=== PATIENT | male | born 1965 | race American Indian/Alaskan Native ===

== ENCOUNTER 2017-07-24 05:55 | Inpatient (IN) | payer OTHER ==
[2017-07-24] MEDS ORDERED: APRESOLINE IV ONE (06:09)
--- NOTE | 2017-07-24 06:15 | Emergency Department Report ---
HPI - General Chief Complaint: Dyspnea/Respdistress Time Seen by Provider: 07/24/17 06:08 - HPI HPI: This is a 51-year-old -[place] male presents to the emergency department by EMS from home with complaint of shortness of breath that started this evening around 3 AM. He attempted to use his albuterol inhaler but he is unsure whether there is actually any medication in the inhaler. He has a past medical history of CHF, diabetes, hypertension. He denies any chest pain, fever , nausea, vomiting. He denies any history of SD, CVA, PE/DVT. He received a breathing treatment in route, 325 mg of aspirin and 2 sublingual nitroglycerin with mild relief. He presents with very elevated blood pressure. He does not currently have a primary care physician. No recent travel or sick contacts at home. ED Past Medical Hx - Past Medical History Previous Medical History?: Yes Hx Hypertension: Yes Hx Congestive Heart Failure: Yes Hx Diabetes: Yes Hx Psychiatric Treatment: Yes - Social History Smoking Status: Current Every Day Smoker Substance Use Type: Alcohol - Medications Home Medications: Home Medications Medication Instructions Recorded Confirmed Last Taken Type Diclofenac Dr [Lauren Newsome] 75 mg PO Q12H PRN #60 tablet 04/14/15 07/24/17 Unknown Rx Pravastatin [Pravachol] 20 mg PO QDAY #30 tablet 04/14/15 07/24/17 Unknown Rx amLODIPine [Norvasc] 10 mg PO QHS #30 tab 01/05/16 07/24/17 Unknown Rx ALBUTEROL Inhaler [ProAir HFA 2 puff IH QID PRN #1 pump 12/09/16 07/24/17 Unknown Rx Inhaler] Famotidine [Pepcid] 20 mg PO BID #60 tablet 12/09/16 07/24/17 Unknown Rx Lisinopril/Hydrochlorothiazide 1 tab PO QAM #30 tab 12/09/16 07/24/17 Unknown Rx [Zestoretic 20-25 mg] Hydralazine HCl [Apresoline TAB] 50 mg PO Q8HR #90 tab 12/10/16 07/24/17 Unknown Rx ED Review of Systems ROS: Stated complaint: RESPIRATORY DISTRESS Other details as noted in HPI Comment: All other systems reviewed and negative Constitutional: denies: chills, fever Eyes: denies: eye pain, eye discharge, vision change ENT: denies: ear pain, throat pain Respiratory: shortness of breath. denies: cough Cardiovascular: denies: chest pain, palpitations Gastrointestinal: denies: abdominal pain, nausea, diarrhea Genitourinary: denies: urgency, dysuria Musculoskeletal: denies: back pain, joint swelling, arthralgia Skin: denies: rash, lesions Neurological: denies: headache, weakness, paresthesias Physical Exam - Physical Exam Vital Signs: Vital Signs 07/24/17 07/24/17 06:00 06:02 Temperature 97.4 F L Pulse Rate 92 H 75 Respiratory 20 22 Rate Blood Pressure 226/131 226/131 O2 Sat by Pulse 96 Oximetry Physical Exam: GENERAL: The patient is well-developed well-nourished. HENT: Normocephalic. Atraumatic. Patient has moist mucous membranes. EYES: Extraocular motions are intact. Pupils equal reactive to light bilaterally. NECK: Supple. Trachea is midline. CHEST/LUNGS: Coarse breath sounds throughout the chest. There is tachypnea but no accessory muscle use. There is no respiratory distress noted. HEART/CARDIOVASCULAR: Regular. There is no tachycardia. There is no murmur. ABDOMEN: Abdomen is soft, nontender. Patient has normal bowel sounds. There is no abdominal distention. Obese habitus. SKIN: There is no rash. There is no edema. There is no diaphoresis. NEURO: The patient is awake, alert, and oriented. The patient is cooperative. The patient has no focal neurologic deficits. The patient has normal speech. MUSCULOSKELETAL: There is no tenderness or deformity. There is no limitation range of motion. There is no evidence of acute injury. ED Course Vital Signs 07/24/17 07/24/17 06:00 06:02 Temperature 97.4 F L Pulse Rate 92 H 75 Respiratory 20 22 Rate Blood Pressure 226/131 226/131 O2 Sat by Pulse 96 Oximetry ED Medical Decision Making - Lab Data Result diagrams: 07/24/17 06:12 07/24/17 06:12 - EKG Data -: EKG Interpreted by Me EKG shows normal: sinus rhythm, axis, intervals, QRS complexes (LVH, there is some early repolarization seen in the anterior leads), ST-T waves Rate: normal - EKG Data When compared to previous EKG there are: no significant change Interpretation: unchanged when compared t (3/31/17) - Radiology Data Radiology results: image reviewed interpreted by me: Chest x-ray shows some mild cardiomegaly and pulmonary vascular congestion. - Medical Decision Making 51-year-old male presents with shortness of breath that started this evening. Medication noncompliance. No follow-up. He has some coarse breath sounds on examination. Pulmonary vascular congestion on chest x-ray. BNP is greater than 3000. He also presented with hypertensive urgency with a systolic greater than 220. He was given some IV hydralazine and IV Lasix. He will be admitted to the hospital for further evaluation and treatment and has been accepted for admission by the hospitalist service. - Differential Diagnosis CHF, PE, Pneumonia, SD, Asthma Critical Care Time: No Critical care attestation.: If time is entered above; I have spent that time in minutes in the direct care of this critically ill patient, excluding procedure time. ED Disposition Clinical Impression: Hypertensive urgency, Congestive heart failure due to high blood pressure Dyspnea Qualifiers: Dyspnea type: shortness of breath Qualified Code(s): R06.02 - Shortness of breath; R06.00 - Dyspnea, unspecified; R06.01 - Orthopnea Disposition: -09 OP ADMIT IP TO THIS HOSP Is pt being admited?: Yes Condition: Stable Referrals: PRIMARY CARE, [Primary Care Provider] - 3-5 Days Time of Disposition: 07:52
[2017-07-24 06:31] LABS: Basophils % (Auto) 0.3 % (0.0-1.8); Eosinophils % (Auto) 1.6 % (0.0-4.3); Mean Corpuscular HGB Conc 33 % (32-34); Mean Corpuscular Hemoglobin 29 pg (28-32); Mean Corpuscular Volume 88 fl (84-94); Platelet Count 182 K/mm3 (140-440); Red Blood Count 5.46 M/mm3 (3.65-5.03); Red Cell Distribution Width 14.9 % (13.2-15.2); White Blood Count 9.2 K/mm3 (4.5-11.0)
[2017-07-24 06:40] LABS: INR 0.89 (0.87-1.13)
[2017-07-24 06:44] LABS: Anion Gap 19 mmol/L; BUN/Creatinine Ratio 14; Blood Urea Nitrogen 17 mg/dL (9-20); Calcium 9.5 mg/dL (8.4-10.2); Carbon Dioxide 23 mmol/L (22-30); Chloride 104.3 mmol/L (98-107); Glucose 132 mg/dL (75-100); Sodium 142 mmol/L (137-145)
[2017-07-24] MEDS ORDERED: DUONEB *Not for PRN Use IH ONE (06:46)
[2017-07-24] MEDS ORDERED: LASIX IV ONE (06:46)
--- NOTE | 2017-07-24 08:29 | History and Physical Report ---
History of Present Illness Date of examination: 07/24/17 Date of admission: 07/24/2017 Chief complaint: Shortness of breath History of present illness: Patient is a 51-year-old -[place] male with past medical history of CHF and hypertension who, presents to the emergency department by EMS from home with complaint of shortness of breath. Until this morning patient was at his normal baseline state of health. Patient developed difficulty of breathing this morning around 3:Am and he has had progressive worsening of shortness of breath. This morning he wake up with difficultly of breathing, shortly after he felt like he could not catch his breath and got worried so called 911 and brought him to the Emergency Department. He is not on oxygen at home. Patient denies he has had no fevers, chills, or night sweats. No hx of recurrent pneumonia. He has no sick contact, TB exposure. He use to have 1-2 pillow, orthopnea and CRUZ but is currently denying PND, abdominal distention, or peripheral edema. Past History Past Medical History: heart failure, hypertension Past Surgical History: No surgical history Social history: smoking Family history: hypertension Medications and Allergies Allergies Allergy/AdvReac Type Severity Reaction Status Date / Time No Known Allergies Allergy Verified 03/08/15 04:53 Home Medications Medication Instructions Recorded Confirmed Last Taken Type ALBUTEROL Inhaler [ProAir HFA 2 puff IH QID PRN #1 pump 07/25/17 Unknown Rx Inhaler] Hydrochlorothiazide [HCTZ] 25 mg PO QDAY #30 tablet 07/25/17 Unknown Rx Lisinopril [Zestril TAB] 40 mg PO QDAY #30 tablet 07/25/17 Unknown Rx Pravastatin [Pravachol] 20 mg PO QDAY #30 tablet 07/25/17 Unknown Rx amLODIPine [Norvasc] 10 mg PO DAILY #30 tab 07/25/17 Unknown Rx Active Meds: Active Medications Acetaminophen (Tylenol) 650 mg PO Q4H PRN PRN Reason: Pain MILD(1-3)/Fever >100.5/ESPARZA Amlodipine Besylate (Norvasc) 10 mg PO QHS CHARLIE Bisacodyl (Dulcolax) 10 mg DE QDAY PRN PRN Reason: Constipation unrelieved by MOM Enoxaparin Sodium (Lovenox) 40 mg SUB-Q QDAY CHARLIE Famotidine (Pepcid) 20 mg PO BID CHARLIE Furosemide (Lasix) 40 mg IV BID@0600,1800 [facility] Miscellaneous Medication (Hydralazine Hcl [Apresoline Tab]) 50 mg PO Q8HR [facility] Miscellaneous Medication (Lisinopril/Hydrochlorothiazide [Zestoretic 20-25 Mg]) 1 tab PO QAM [facility] Pravastatin Sodium (Pravachol) 20 mg PO QDAY [facility] Review of Systems Constitutional: no weight loss, no weight gain, no fever, no chills Ears, nose, mouth and throat: no ear pain, no ear discharge, no nasal congestion Cardiovascular: shortness of breath, dyspnea on exertion, no chest pain, no orthopnea, no palpitations Respiratory: cough, shortness of breath, dyspnea on exertion, no cough with sputum, no excessive sputum Gastrointestinal: no diarrhea, no change in bowel habits Genitourinary Male: no urinary frequency, no nocturia, no erectile dysfunction Rectal: no incontinence, no bleeding Musculoskeletal: no neck stiffness, no neck pain, no shooting arm pain Integumentary: no redness, no sores, no wounds, no jaundice Neurological: no parathesias, no numbness, no tingling, no seizures Psychiatric: no memory loss, no change in sleep habits, no sleep disturbances Endocrine: no heat intolerance, no polyphagia, no excessive thirst, no polydipsia Hematologic/Lymphatic: no easy bruising, no easy bleeding Allergic/Immunologic: no urticaria, no allergic rhinitis Exam - Constitutional Vitals: Temp Pulse Resp BP Pulse Ox 97.4 F L 84 18 182/96 98 07/24/17 06:02 07/24/17 08:27 07/24/17 08:27 07/24/17 07:30 07/24/17 06:24 General appearance: Present: mild distress - EENT Eyes: Present: PERRL ENT: hearing intact - Neck Neck: Present: supple - Respiratory Respiratory: bilateral: rales - Cardiovascular Rhythm: regular Heart Sounds: Present: S1 & S2 - Abdominal General gastrointestinal: Present: soft, non-tender Male genitourinary: Present: deferred - Rectal Rectal Exam: deferred - Integumentary Integumentary: Present: clear, warm, dry - Musculoskeletal Musculoskeletal: strength equal bilaterally - Psychiatric Psychiatric: appropriate mood/affect - Neurologic Neurologic: CNII-XII intact - Allied Health Allied health notes reviewed: nursing Results - Labs CBC & Chem 7: 07/25/17 04:32 07/25/17 04:32 Labs: Laboratory Last Values WBC 9.2 K/mm3 (4.5-11.0) 07/24/17 06:12 RBC 5.46 M/mm3 (3.65-5.03) H 07/24/17 06:12 Hgb 16.0 gm/dl (11.8-15.2) H 07/24/17 06:12 Hct 48.0 % (35.5-45.6) H 07/24/17 06:12 MCV 88 fl (84-94) 07/24/17 06:12 MCH 29 pg (28-32) 07/24/17 06:12 MCHC 33 % (32-34) 07/24/17 06:12 RDW 14.9 % (13.2-15.2) 07/24/17 06:12 Plt Count 182 K/mm3 (140-440) 07/24/17 06:12 Lymph % (Auto) 12.4 % (13.4-35.0) L 07/24/17 06:12 [place] % (Auto) 5.2 % (0.0-7.3) 07/24/17 06:12 Eos % (Auto) 1.6 % (0.0-4.3) 07/24/17 06:12 Baso % (Auto) 0.3 % (0.0-1.8) 07/24/17 06:12 Lymph # 1.1 K/mm3 (1.2-5.4) L 07/24/17 06:12 [place] # 0.5 K/mm3 (0.0-0.8) 07/24/17 06:12 Eos # 0.1 K/mm3 (0.0-0.4) 07/24/17 06:12 Baso # 0.0 K/mm3 (0.0-0.1) 07/24/17 06:12 Seg Neutrophils % 80.5 % (40.0-70.0) H 07/24/17 06:12 Seg Neutrophils # 7.4 K/mm3 (1.8-7.7) 07/24/17 06:12 PT 12.5 Sec. (12.2-14.9) 07/24/17 06:12 INR 0.89 (0.87-1.13) 07/24/17 06:12 APTT 26.0 Sec. (24.2-36.6) 07/24/17 06:12 Sodium 142 mmol/L (137-145) 07/24/17 06:12 Potassium 4.0 mmol/L (3.6-5.0) 07/24/17 06:12 Chloride 104.3 mmol/L (98-107) 07/24/17 06:12 Carbon Dioxide 23 mmol/L (22-30) 07/24/17 06:12 Anion Gap 19 mmol/L 07/24/17 06:12 BUN 17 mg/dL (9-20) 07/24/17 06:12 Creatinine 1.2 mg/dL (0.8-1.5) 07/24/17 06:12 Estimated GFR > 60 ml/min 07/24/17 06:12 BUN/Creatinine Ratio 14 % 07/24/17 06:12 Glucose 132 mg/dL (75-100) H 07/24/17 06:12 Calcium 9.5 mg/dL (8.4-10.2) 07/24/17 06:12 Troponin T 0.019 ng/mL (0.00-0.029) 07/24/17 06:12 NT-Pro-B Natriuret Pep 3804 pg/mL (0-900) H 07/24/17 06:12 - Imaging and Cardiology Chest x-ray: image reviewed ([facility] Cardiomegaly) Assessment and Plan Assessment and plan: Patient is a 51-year-old -[place] male with past medical history of CHF and hypertension who, presents to the emergency department by EMS from home with complaint of shortness of breath. Chest pain secondary to Hypertensive urgency Recent Echocardiogram with ef 50%-55% with Stress test Negative for ischemia on 03/27 EKG sinus rhythm Optimized home antihypertensive medications Strict I&O's and daily weights Low-sodium/cardiac diet/fluid restriction Closely monitor electrolytes Cardiology evaluation GERD Started on IV Protonix Hypertensive urgency Optimized home antihypertensive medications IV hydralazine for SBP >160 Closely monitor blood pressure Tobacco abuse Smoking cessation counseling done. Patient strongly advised to quit. DVT prophylaxis Heparin Advance Directives: Yes VTE prophylaxis?: Chemical Contraindication Mechanical VTE Prophylaxis: Treatment Not Indicated Plan of care discussed with patient/family: Yes
[2017-07-24] MEDS ORDERED: APRESOLINE IV PRN (09:00)
[2017-07-24] MEDS ORDERED: TYLENOL PO PRN (09:00)
--- NOTE | 2017-07-24 09:05 | XRay Report ---
PORTABLE CHEST INDICATION: Shortness of breath. COMPARISON: 12/09/2016 FINDINGS: Portable, frontal chest radiograph suggests slight cardiomegaly. Grossly normal mediastinal and hilar contours. Clear lungs. Right hemidiaphragm again slightly elevated. EKG leads. Intact bones. CONCLUSION: No acute chest process with borderline cardiomegaly. Please correlate. Thank you for the opportunity to participate in this patient's care.
[2017-07-24] MEDS ORDERED: HCTZ PO SCH (10:00)
[2017-07-24] MEDS ORDERED: NON-FORMULARY (Lisinopril/Hydrochlorothiazide [Zestoretic 20-25 Mg] 1 TAB) PO SCH (10:00)
[2017-07-24] MEDS ORDERED: DULCOLAX PR PRN (10:00)
[2017-07-24] MEDS ORDERED: PEPCID PO SCH (10:00)
[2017-07-24] MEDS ORDERED: ZESTRIL PO SCH (10:00)
[2017-07-24] MEDS: COREG PO SCH ×2 (12:45→21:59)
[2017-07-24] MEDS: ZESTRIL PO SCH (12:46)
[2017-07-24] MEDS: PROCARDIA XL PO SCH (12:46)
[2017-07-24] MEDS: LOVENOX SUB-Q SCH (12:47)
[2017-07-24] MEDS ORDERED: NON-FORMULARY (Hydralazine Hcl [Apresoline Tab] 50 MG) PO SCH (14:00)
[2017-07-24] MEDS: APRESOLINE PO SCH ×2 (15:19→22:00)
--- NOTE | 2017-07-24 16:55 | Consultation ---
History of Present Illness Consult date: 07/24/17 Consult reason: congestive heart failure History of present illness: 51yr old male who presented to this hospital with complaints of shortness of breath. Patient denies prior cardiac history. His most recent cardiac workup was done 8 months ago. He had a stress test that reports no ischemia. Normal left ventricular systolic function, ejection fraction 50-55%. He denies chest pain and palpitations. There was no syncope. Patient reports he woke up short of breath associated with diaphoresis. Chest x-ray reports no acute cardiopulmonary process. A 12 lead ECG is a sinus rhythm with repolarization abnormalities. Noted hypertensive on presentation with a blood pressure of 226/131 and admitted for further management. Past History Social history: smoking Family history: hypertension Medications and Allergies Allergies Allergy/AdvReac Type Severity Reaction Status Date / Time No Known Allergies Allergy Verified 03/08/15 04:53 Home Medications Medication Instructions Recorded Confirmed Last Taken Type Diclofenac Dr [Voltaren Dr] 75 mg PO Q12H PRN #60 tablet 04/14/15 07/24/17 Unknown Rx Pravastatin [Pravachol] 20 mg PO QDAY #30 tablet 04/14/15 07/24/17 Unknown Rx amLODIPine [Norvasc] 10 mg PO QHS #30 tab 01/05/16 07/24/17 Unknown Rx ALBUTEROL Inhaler [ProAir HFA 2 puff IH QID PRN #1 pump 12/09/16 07/24/17 Unknown Rx Inhaler] Famotidine [Pepcid] 20 mg PO BID #60 tablet 12/09/16 07/24/17 Unknown Rx Lisinopril/Hydrochlorothiazide 1 tab PO QAM #30 tab 12/09/16 07/24/17 Unknown Rx [Zestoretic 20-25 mg] Hydralazine HCl [Apresoline TAB] 50 mg PO Q8HR #90 tab 12/10/16 07/24/17 Unknown Rx Active Meds: Active Medications Acetaminophen (Tylenol) 650 mg PO Q4H PRN PRN Reason: Pain MILD(1-3)/Fever >100.5/ESPARZA Bisacodyl (Dulcolax) 10 mg AL QDAY PRN PRN Reason: Constipation Carvedilol (Coreg) 6.25 mg PO BID CHARLIE Last Admin: 07/24/17 12:45 Dose: 6.25 mg Enoxaparin Sodium (Lovenox) 40 mg SUB-Q QDAY [facility] Last Admin: 07/24/17 12:47 Dose: 40 mg Furosemide (Lasix) 40 mg IV BID@0600,1800 [facility] Hydralazine HCl (Apresoline) 50 mg PO Q8HR [facility] Last Admin: 07/24/17 15:19 Dose: 50 mg Hydralazine HCl (Apresoline) 10 mg IV Q4H PRN PRN Reason: Blood Pressure Lisinopril (Zestril) 40 mg PO DAILY [facility] Last Admin: 07/24/17 12:46 Dose: 40 mg Nifedipine (Procardia Xl) 60 mg PO DAILY [facility] Last Admin: 07/24/17 12:46 Dose: 60 mg Pantoprazole Sodium (Protonix) 40 mg PO DAILY [facility] Pravastatin Sodium (Pravachol) 20 mg PO QHS [facility] Physical Examination Vital Signs Pulse Resp BP 92 H 20 226/131 07/24/17 06:00 07/24/17 06:00 07/24/17 06:00 General appearance: no acute distress HEENT: Positive: PERRL Neck: Positive: trachea midline Cardiac: Positive: Reg Rate and Rhythm Lungs: Positive: Decreased Breath Sounds Neuro: Positive: Grossly Intact Extremities: Absent: edema Results 07/24/17 06:12 07/24/17 06:12 Assessment and Plan - Patient Problems (1) Hypertensive urgency Current Visit: Yes Status: Acute
[2017-07-24] MEDS: LASIX IV SCH (19:30)
[2017-07-24] MEDS ORDERED: NORVASC PO SCH (22:00)
[2017-07-24] MEDS ORDERED: PRAVACHOL PO SCH (22:00)
[2017-07-25 05:00] LABS: Basophils % (Auto) 0.8 % (0.0-1.8); Eosinophils % (Auto) 1.5 % (0.0-4.3); Hemoglobin 17.8 gm/dl (11.8-15.2); Mean Corpuscular HGB Conc 33 % (32-34); Mean Corpuscular Hemoglobin 28 pg (28-32); Mean Corpuscular Volume 87 fl (84-94); Platelet Count 229 K/mm3 (140-440); Red Blood Count 6.27 M/mm3 (3.65-5.03); Red Cell Distribution Width 15.3 % (13.2-15.2); White Blood Count 7.5 K/mm3 (4.5-11.0)
[2017-07-25 05:21] LABS: Anion Gap 19 mmol/L; BUN/Creatinine Ratio 17; Blood Urea Nitrogen 19 mg/dL (9-20); Calcium 10.1 mg/dL (8.4-10.2); Carbon Dioxide 24 mmol/L (22-30); Chloride 97.6 mmol/L (98-107); Glucose 120 mg/dL (75-100); Hematocrit 53.7 % (35.5-45.6); Potassium 3.7 mmol/L (3.6-5.0); Sodium 137 mmol/L (137-145)
[2017-07-25] MEDS: LASIX IV SCH (06:45)
[2017-07-25] MEDS: APRESOLINE PO SCH (06:46)
[2017-07-25 08:15] VITALS: BP 132/77
[2017-07-25] MEDS ORDERED: PROTONIX PO SCH (10:00)
[2017-07-25] MEDS ORDERED: PROTONIX IV SCH (10:00)
--- NOTE | 2017-07-25 10:11 | Discharge Summary ---
Providers - Providers Date of Admission: 07/24/17 08:24 Attending physician: MU HEBERT MD 07/24/17 08:51 Consult to Physician [CONS] Routine Consulting Provider: SAM MADERA Reason For Exam: CHF Place consult to:: yes Notified:: Charli Fine Phone number called:: [phone] Was contact made?: Yes If yes, spoke with:: Charli Time called:: 16:45 Primary care physician: [employer] Hospitalization Condition: Stable Hospital course: 51-year-old male with past medical hypertension, who was been off medications due to lack of insurance. Patient presented with chest pain. Found to have hypertensive urgency, ACS was ruled out, EKG troponin were negative. Blood pressure medications were optimized, patient was given resources to help him to better afford his blood pressure medications. Discharge diagnoses Hypertensive urgency GERD Tobacco abuse Disposition: DC- TO HOME OR SELFCARE Time spent for discharge: 33 minutes Core Measure Documentation - Palliative Care Palliative Care/ Comfort Measures: Not Applicable - Core Measures Any of the following diagnoses?: none Exam - Constitutional Vitals: Temp Pulse Resp BP Pulse Ox 97.9 F 73 19 132/77 95 07/25/17 08:14 07/25/17 08:14 07/25/17 08:14 07/25/17 08:14 07/25/17 08:14 General appearance: Present: no acute distress, well-nourished - EENT Eyes: Present: PERRL ENT: hearing intact, clear oral mucosa - Neck Neck: Present: supple, normal ROM - Respiratory Respiratory effort: normal Respiratory: bilateral: CTA - Cardiovascular Heart Sounds: Present: S1 & S2. Absent: rub, click - Extremities Extremities: pulses symmetrical, No edema Peripheral Pulses: within normal limits - Abdominal General gastrointestinal: Present: soft, non-tender, non-distended, normal bowel sounds Male genitourinary: Present: normal - Integumentary Integumentary: Present: clear, warm, dry - Musculoskeletal Musculoskeletal: gait normal, strength equal bilaterally - Psychiatric Psychiatric: appropriate mood/affect, intact judgment & insight - Neurologic Neurologic: CNII-XII intact, moves all extremities Plan Follow up with: [facility] [Provider Group] - 7 Days JEANE SUNG MD [Staff Physician] - 7 Days PRIMARY CAREMD [Primary Care Provider] - 3-5 Days Prescriptions: ALBUTEROL Inhaler [ProAir HFA Inhaler] 2 puff IH QID PRN #1 pump PRN Reason: Shortness Of Breath amLODIPine [Norvasc] 10 mg PO DAILY #30 tab Hydrochlorothiazide [HCTZ] 25 mg PO QDAY #30 tablet Lisinopril [Zestril TAB] 40 mg PO QDAY #30 tablet Pravastatin [Pravachol] 20 mg PO QDAY #30 tablet
[2017-07-25] MEDS: COREG PO SCH (11:19)
[2017-07-25] MEDS: ZESTRIL PO SCH (11:19)
[2017-07-25] MEDS: LOVENOX SUB-Q SCH (11:19)
[2017-07-25] MEDS: PROCARDIA XL PO SCH (11:20)
--- NOTE | 2017-07-25 12:59 | Progress Note ---
Assessment and Plan Hypoxemia Hypertensive urgency Negative MPI 11/2016 EF 50-55% on echo 11/2016 Conservative cardiac management. Subjective Date of service: 07/25/17 Interval history: Patient has no complaints. Objective Vital Signs Temp Pulse Pulse Resp BP BP Pulse Ox 07/25/17 11:19 73 132/77 07/25/17 08:14 97.9 F 73 19 132/77 95 07/25/17 06:46 89 140/69 07/25/17 06:13 18 07/25/17 05:18 75 91 07/25/17 05:17 97.6 F 76 140/69 94 07/25/17 03:06 18 07/25/17 01:35 72 95 07/25/17 01:34 98.9 F 74 128/76 93 07/24/17 22:00 78 86 18 140/83 97 07/24/17 21:59 78 140/83 07/24/17 21:55 99.2 F 07/24/17 20:36 80 155/81 94 07/24/17 20:35 76 150 H 155/81 95 07/24/17 16:22 98.3 F 74 18 149/87 97 07/24/17 15:19 88 172/89 - Physical Examination General: No Apparent Distress HEENT: Positive: PERRL Neck: Positive: trachea midline Cardiac: Positive: Reg Rate and Rhythm Neuro: Positive: Grossly Intact Extremities: Absent: edema - Labs and Meds CBC 07/25/17 Range/Units 04:32 WBC 7.5 (4.5-11.0) K/mm3 RBC 6.27 H (3.65-5.03) M/mm3 Hgb 17.8 H (11.8-15.2) gm/dl Hct 53.7 H (35.5-45.6) % Plt Count 229 (140-440) K/mm3 Lymph # 1.4 (1.2-5.4) K/mm3 [place] # 0.8 (0.0-0.8) K/mm3 Eos # 0.1 (0.0-0.4) K/mm3 Baso # 0.1 (0.0-0.1) K/mm3 Comprehensive Metabolic Panel 07/25/17 Range/Units 04:32 Sodium 137 (137-145) mmol/L Potassium 3.7 (3.6-5.0) mmol/L Chloride 97.6 L (98-107) mmol/L Carbon Dioxide 24 (22-30) mmol/L BUN 19 (9-20) mg/dL Creatinine 1.1 (0.8-1.5) mg/dL Glucose 120 H (75-100) mg/dL Calcium 10.1 (8.4-10.2) mg/dL
--- NOTE | 2017-07-28 10:56 | History and Physical Report ---
History of Present Illness Date of admission: 07/24/17 08:24 Chief complaint: chest pain. History of present illness: 51m with pmh of htn, who has not been on meds due to lack of insurance. He pw chest pain associated with sob, denies orthopnea, PND or lower extremity edema. He describes the pain as constant, gallstone sternal. No radiation Past History Past Medical History: hypertension Past Surgical History: No surgical history Social history: smoking Family history: hypertension Medications and Allergies Allergies Allergy/AdvReac Type Severity Reaction Status Date / Time No Known Allergies Allergy Verified 03/08/15 04:53 Home Medications Medication Instructions Recorded Confirmed Last Taken Type ALBUTEROL Inhaler [ProAir HFA 2 puff IH QID PRN #1 pump 07/25/17 Unknown Rx Inhaler] Hydrochlorothiazide [HCTZ] 25 mg PO QDAY #30 tablet 07/25/17 Unknown Rx Lisinopril [Zestril TAB] 40 mg PO QDAY #30 tablet 07/25/17 Unknown Rx Pravastatin [Pravachol] 20 mg PO QDAY #30 tablet 07/25/17 Unknown Rx amLODIPine [Norvasc] 10 mg PO DAILY #30 tab 07/25/17 Unknown Rx Review of Systems All systems: negative Cardiovascular: chest pain, shortness of breath, no dyspnea on exertion, no paroxysmal nocturnal dyspnea Exam - Constitutional Vitals: Temp Pulse Resp BP Pulse Ox 97.9 F 73 19 132/77 95 07/25/17 08:14 07/25/17 11:19 07/25/17 08:14 07/25/17 11:19 07/25/17 08:14 General appearance: Present: no acute distress, well-nourished - EENT Eyes: Present: PERRL ENT: hearing intact, clear oral mucosa - Neck Neck: Present: supple, normal ROM - Respiratory Respiratory effort: normal Respiratory: bilateral: CTA - Cardiovascular Heart Sounds: Present: S1 & S2. Absent: rub, click - Extremities Extremities: pulses symmetrical, No edema Peripheral Pulses: within normal limits - Abdominal General gastrointestinal: Present: soft, non-tender, non-distended, normal bowel sounds Male genitourinary: Present: normal - Integumentary Integumentary: Present: clear, warm, dry - Musculoskeletal Musculoskeletal: gait normal, strength equal bilaterally - Psychiatric Psychiatric: appropriate mood/affect, intact judgment & insight - Neurologic Neurologic: CNII-XII intact, moves all extremities Results - Labs CBC & Chem 7: 07/25/17 04:32 07/25/17 04:32 Labs: Laboratory Last Values WBC 7.5 K/mm3 (4.5-11.0) 07/25/17 04:32 RBC 6.27 M/mm3 (3.65-5.03) H 07/25/17 04:32 Hgb 17.8 gm/dl (11.8-15.2) H 07/25/17 04:32 Hct 53.7 % (35.5-45.6) H 07/25/17 04:32 MCV 87 fl (84-94) 07/25/17 04:32 MCH 28 pg (28-32) 07/25/17 04:32 MCHC 33 % (32-34) 07/25/17 04:32 RDW 15.3 % (13.2-15.2) H 07/25/17 04:32 Plt Count 229 K/mm3 (140-440) 07/25/17 04:32 Lymph % (Auto) 18.4 % (13.4-35.0) 07/25/17 04:32 Sabine % (Auto) 10.5 % (0.0-7.3) H 07/25/17 04:32 Eos % (Auto) 1.5 % (0.0-4.3) 07/25/17 04:32 Baso % (Auto) 0.8 % (0.0-1.8) 07/25/17 04:32 Lymph # 1.4 K/mm3 (1.2-5.4) 07/25/17 04:32 Sabine # 0.8 K/mm3 (0.0-0.8) 07/25/17 04:32 Eos # 0.1 K/mm3 (0.0-0.4) 07/25/17 04:32 Baso # 0.1 K/mm3 (0.0-0.1) 07/25/17 04:32 Seg Neutrophils % 68.8 % (40.0-70.0) 07/25/17 04:32 Seg Neutrophils # 5.1 K/mm3 (1.8-7.7) 07/25/17 04:32 PT 12.5 Sec. (12.2-14.9) 07/24/17 06:12 INR 0.89 (0.87-1.13) 07/24/17 06:12 APTT 26.0 Sec. (24.2-36.6) 07/24/17 06:12 Sodium 137 mmol/L (137-145) 07/25/17 04:32 Potassium 3.7 mmol/L (3.6-5.0) 07/25/17 04:32 Chloride 97.6 mmol/L (98-107) L 07/25/17 04:32 Carbon Dioxide 24 mmol/L (22-30) 07/25/17 04:32 Anion Gap 19 mmol/L 07/25/17 04:32 BUN 19 mg/dL (9-20) 07/25/17 04:32 Creatinine 1.1 mg/dL (0.8-1.5) 07/25/17 04:32 Estimated GFR > 60 ml/min 07/25/17 04:32 BUN/Creatinine Ratio 17 % 07/25/17 04:32 Glucose 120 mg/dL (75-100) H 07/25/17 04:32 Calcium 10.1 mg/dL (8.4-10.2) 07/25/17 04:32 Magnesium 2.00 mg/dL (1.7-2.3) 07/25/17 04:35 Troponin T 0.019 ng/mL (0.00-0.029) 07/24/17 06:12 NT-Pro-B Natriuret Pep 3804 pg/mL (0-900) H 07/24/17 06:12 - Imaging and Cardiology EKG: image reviewed (no acute findings) Chest x-ray: image reviewed Assessment and Plan Assessment and plan: Patient is a 51-year-old -[place] male with past medical history of hypertension, who has been off meds due to lack of insurance who pw chest pain, and elevated BP. HTN URGENCY Optimize blood pressure medications, will give patient resources so that he is better able to afford his blood pressure medications and have also given him medications that are free on the [employer] medication list CHEST PAIN Was likely due to hypertensive urgency, troponin negative, chest x-ray and EKG also negative. Cardiology input appreciated GERD PPI Tobacco abuse Patient was counseled about cessation, nicotine patch offered. Plan of care discussed with patient/family: Yes
== END 2017-07-25 12:36 | disposition home or self-care (01) | DRG 305 ==
LOC: ED 05:55 → 4A 08:24
PROVIDERS: ADMIT Internal Medicine; ATTEND Internal Medicine
DX: I16.0 Hypertensive urgency (principal); J44.1 Chronic obstructive pulmonary disease with (acute) exacerbation; E11.9 Type 2 diabetes mellitus without complications; F17.200 Nicotine dependence, unspecified, uncomplicated; K21.9 Gastro-esophageal reflux disease without esophagitis; R09.02 Hypoxemia; I11.0 Hypertensive heart disease with heart failure; I50.9 Heart failure, unspecified; Z82.49 Family history of ischemic heart disease and other diseases of the circulatory system; Z71.6 Tobacco abuse counseling
CPT/HCPCS: 36415; 71010; 80048; 83735; 83880; 84484; 85025; 85610; 85730; 93005; 93010; 94640; 96374; 96375; 99285; 99406; J0360; J1650; J1940

== ENCOUNTER 2018-12-18 06:36 | Day surgery (SDC) | payer MEDICAID ==
[2018-12-18] MEDS ORDERED: ECOTRIN PO ONE (06:56)
[2018-12-18 07:19] LABS: Basophils % (Auto) 0.8 % (0.0-1.8); Eosinophils # (Auto) 0.3 K/mm3 (0.0-0.4); Eosinophils % (Auto) 5.1 % (0.0-4.3); Hematocrit 43.8 % (35.5-45.6); Hemoglobin 15.3 gm/dl (11.8-15.2); Lymphocytes # (Auto) 2.1 K/mm3 (1.2-5.4); Lymphocytes % (Auto) 38.2 % (13.4-35.0); Mean Corpuscular HGB Conc 35 % (32-34); Mean Corpuscular Volume 87 fl (84-94); Monocytes # (Auto) 0.6 K/mm3 (0.0-0.8); Monocytes % (Auto) 10.2 % (0.0-7.3); Platelet Count 227 K/mm3 (140-440); Red Blood Count 5.06 M/mm3 (3.65-5.03); Red Cell Distribution Width 13.9 % (13.2-15.2)
[2018-12-18 07:29] LABS: INR 0.92 (0.87-1.13)
[2018-12-18 07:30] LABS: Partial Thromboplastin Time 25.4 Sec. (24.2-36.6)
[2018-12-18] MEDS: NACL 0.9% 500 ML 500 ML IV SCH ×3 (07:30→10:35)
[2018-12-18 07:41] LABS: BUN/Creatinine Ratio 18; Blood Urea Nitrogen 23 mg/dL (9-20); Calcium 9.7 mg/dL (8.4-10.2); Hemolysis Index 8
[2018-12-18] MEDS ORDERED: HEPARIN/NS 5000 UNIT/500ML(CATH LAB) 1,000 ML IR ONE (08:56)
[2018-12-18] MEDS: VERSED ONE ×3 (09:37→09:50)
[2018-12-18] MEDS: SUBLIMAZE ONE ×3 (09:37→09:50)
[2018-12-18] MEDS: CALAN ONE ×2 (09:38→09:48)
[2018-12-18] MEDS: XYLOCAINE 2% INFILTRATI ONE ×2 (09:38→09:46)
[2018-12-18] MEDS: HEPARIN 10,000 UNITS/10 ML ONE ×2 (09:39→09:48)
[2018-12-18] MEDS: NITROGLYCERIN SYRINGE 3 ML ONE ×2 (09:40→09:48)
--- NOTE | 2018-12-18 10:33 | Discharge Summary ---
Short Stay Discharge Plan Activity: advance as tolerated Weight Bearing Status: Full Weight Bearing Diet: low fat, low cholesterol, low salt Wound: keep clean and dry Special Instructions: smoking cessation, no heavy lifting (3 days) Additional Instructions: STOP SMOKING ADVISED. Follow up with: LOLI CUEVAS MD [Primary Care Provider] - 7 Days WIL DAVIS MD [Staff Physician] - 7 Days
[2018-12-18] MEDS ORDERED: NACL 0.9% 1000 ML 1,000 ML IV SCH (11:00)
--- NOTE | 2018-12-18 11:14 | Cardiac Catherization Report ---
CARDIAC CATHETERIZATION REPORT REASON FOR PROCEDURE: The patient is a 53-year-old man that had an outpatient evaluation for chest pain reported with an abnormal stress thallium, referred for cardiac catheterization. PROCEDURE: 1. Left heart catheterization. 2. Selective left and right coronary angiography. 3. Left ventricle angiography. 4. Sedation time: Start 9:45, end 10:00. DESCRIPTION OF PROCEDURE: The patient was prepped and draped in a sterile fashion after informed consent. The right radial cath site was prepped and draped after a negative Terrence's test. The right radial artery was entered using Seldinger technique followed by placement of a 6-Ukrainian hydrophilic sheath. Routine radial cocktail was administered via the sheath. Selective left and right coronary angiography was performed using #4 right and left Benjamín catheters. The right Benjamín catheter was used for left ventricle angiography. The catheters were removed, sheath removed and hemostasis achieved using a TR band. The patient was returned to the post-procedure unit in stable condition. There were no complications. FINDINGS: HEMODYNAMICS: The left ventricle end diastolic pressure was 18, following coronary angiography. Ascending aortic pressure was 112/69. There was no significant pressure gradient on pullback across the aortic valve. CORONARY ANGIOGRAPHY: The left main coronary artery was angiographically normal. The left anterior descending artery and its diagonal branches were angiographically normal. The circumflex artery was a large system, codominant with the right coronary artery. This vessel had mild luminal irregularities in its mid to distal AV groove segment. The right coronary artery was small caliber vessel, codominant with the circumflex. There was mild ostial narrowing of the right coronary artery. Left ventricular systolic function was within normal limits, ejection fraction 55%. CONCLUSION: 1. Mild irregularities as above, no significant obstructive coronary lesions. 2. Well preserved left ventricular systolic function, ejection fraction 50-55%. RECOMMENDATION: Risk factor modification and medical therapy. JOB# [id number] CA/NTS
[2018-12-18 12:52] VITALS: BP 114/70
== END 2018-12-18 13:30 | disposition home or self-care (01) ==
LOC: CATHLABREC 06:36
PROVIDERS: ATTEND Internal Medicine Cardiovascular Disease
DX: R07.9 Chest pain, unspecified (principal); I11.0 Hypertensive heart disease with heart failure; I50.9 Heart failure, unspecified; J44.9 Chronic obstructive pulmonary disease, unspecified; K21.9 Gastro-esophageal reflux disease without esophagitis; E78.00 Pure hypercholesterolemia, unspecified; F17.210 Nicotine dependence, cigarettes, uncomplicated; Z79.899 Other long term (current) drug therapy; Z79.82 Long term (current) use of aspirin; Z98.890 Other specified postprocedural states
CPT/HCPCS: 36415; 80048; 85025; 85610; 85730; 93005; 93010; 93458; 99156; C1894; J1644; J2250; J3010; J7040; Q9967

== ENCOUNTER 2018-12-23 18:46 | Emergency (ER) | payer MEDICAID ==
[2018-12-23 20:03] VITALS: BP 128/73
--- NOTE | 2018-12-23 20:04 | Emergency Department Report ---
Chief Complaint: Extremity Injury, Upper Stated Complaint: LFT ARM PAIN Time Seen by Provider: 12/23/18 20:00 - HPI History of Present Illness: pt presents with left arm numbness that began at 11 PM last night never had before no ESPARZA, vision changes, no new gait disturbance, no weakness no CP, no SOB PMHx had heart cath on december 18 and states he had stents placed PMHx HTN, HLD MSE screening note: Focused history and physical exam performed. Due to findings the following was ordered: Ct head, EKG, labs ED Disposition for MSE Condition: Stable
--- NOTE | 2018-12-23 21:46 | Emergency Department Report ---
HPI - General Chief Complaint: Extremity Injury, Upper Time Seen by Provider: 12/23/18 20:00 - HPI HPI: 53-year-old -[place] male presents to the emergency department with a complaint of left arm numbness since last night. He woke up this morning and still had the numbness and became concerned. Since then it has improved but he still has the sensation in his left hand. He says it is a pins and needles sensation with some decreased sensation. He denies any headache, vision change, slurred speech or any other neurological deficits. He did not take anything for his symptoms prior to presentation. He has a past medical history of CHF, COPD, hypertension. He had a negative cardiac catheterization about 5 days ago. His primary care physician is Dr. Brown Felix and his cardiology group is [facility]. He is a tobacco smoker but denies any illicit drug use. ED Past Medical Hx - Past Medical History Hx Hypertension: Yes Hx Heart Attack/AMI: No Hx Congestive Heart Failure: Yes Hx Diabetes: No Hx Arthritis: No Hx Psychiatric Treatment: Yes Hx COPD: Yes Hx HIV: No - Social History Smoking Status: Current Every Day Smoker Substance Use Type: Alcohol - Medications Home Medications: Home Medications Medication Instructions Recorded Confirmed Last Taken Type ALBUTEROL Inhaler (OR & NICU) 2 puff IH QID PRN #1 pump 07/25/17 12/18/18 12/10/18 Rx [ProAir HFA Inhaler] 2 puff Lisinopril [Zestril TAB] 40 mg PO QDAY #30 tablet 07/25/17 12/18/18 12/17/18 Rx 40mg Pravastatin [Pravachol] 20 mg PO QDAY #30 tablet 07/25/17 12/18/18 12/17/18 Rx 20mg amLODIPine [Norvasc] 10 mg PO DAILY #30 tab 07/25/17 12/18/18 12/17/18 Rx 10mg hydroCHLOROthiazide [HCTZ] 25 mg PO QDAY #30 tablet 07/25/17 12/18/18 12/17/18 Rx 25mg Aspirin [Adult Low Dose Aspirin EC] 81 mg PO DAILY 12/18/18 12/18/18 12/17/18 History 81mg ISOSORBIDE MONOnitrate [Imdur ER] 30 mg PO DAILY 12/18/18 12/18/18 12/17/18 History 30mg ED Review of Systems ROS: Stated complaint: LFT ARM PAIN Other details as noted in HPI Comment: All other systems reviewed and negative Constitutional: denies: chills, fever Eyes: denies: eye pain, vision change ENT: denies: ear pain, throat pain Respiratory: denies: cough, shortness of breath Cardiovascular: denies: chest pain, palpitations Gastrointestinal: denies: abdominal pain, vomiting Genitourinary: denies: dysuria, discharge Musculoskeletal: denies: back pain, arthralgia Skin: denies: rash, lesions Neurological: numbness, paresthesias Physical Exam - Physical Exam Vital Signs: Vital Signs 12/23/18 20:01 Temperature 98.3 F Pulse Rate 61 Respiratory 17 Rate Blood Pressure 128/73 [Left] O2 Sat by Pulse 100 Oximetry Physical Exam: GENERAL: The patient is well-developed well-nourished. HEENT: Normocephalic. Atraumatic. Patient has moist mucous membranes. EYES: Extraocular motions are intact. Pupils are equal and reactive to light bilaterally. NECK: Supple. Trachea is midline. CHEST/LUNGS: Clear to auscultation. There is no respiratory distress noted. HEART/CARDIOVASCULAR: Regular. There is no tachycardia. There is no obvious murmur. ABDOMEN: Abdomen is soft, nontender. Patient has normal bowel sounds. There is no abdominal distention. SKIN: Skin is warm and dry. NEURO: The patient is awake, alert, and oriented. The patient is cooperative. Patient has subjective decreased sensation to the left hand. The patient has normal speech. Cranial nerves II through XII grossly intact. No pronator drift. No dysmetria. No facial asymmetry. MUSCULOSKELETAL: There is no tenderness or deformity. There is no limitation range of motion. There is no evidence of acute injury. Muscle strength 5 out 5 in upper and lower extremities bilaterally. Capillary refill less than 2 seconds and radial pulses +2 over 4 to the affected left upper extremity. ED Course Vital Signs 12/23/18 20:01 Temperature 98.3 F Pulse Rate 61 Respiratory 17 Rate Blood Pressure 128/73 [Left] O2 Sat by Pulse 100 Oximetry ED Medical Decision Making - Lab Data Result diagrams: 12/23/18 20:18 - EKG Data -: EKG Interpreted by Me EKG shows normal: sinus rhythm, axis, intervals, QRS complexes (nonspecific intraventricular conduction delay), ST-T waves Rate: bradycardia (48 bpm) - EKG Data When compared to previous EKG there are: no significant change Interpretation: unchanged when compared t (12/18/18) - Medical Decision Making This patient presents to the emergency department with complaint of some right arm numbness and no paresthesias. No other complaints at this time. On examination he has full muscle strength and is neurovascularly intact. No focal deficits. Cranial nerves intact. No pronator drift or dysmetria. Labs were being obtained to make sure that there are no electrolyte abnormalities, significant anemia or elevated troponin. The plan was going to be to get a CT scan of the head without contrast. However, just after my evaluation with the patient, he eloped from the emergency department. - Differential Diagnosis paresthesias, CVA, TIA, electrolyte abnormalities, significant anemia Critical Care Time: No Critical care attestation.: If time is entered above; I have spent that time in minutes in the direct care of this critically ill patient, excluding procedure time. ED Disposition Clinical Impression: Left arm numbness, Arm paresthesia, left Disposition: Z-07 ELOPED Is pt being admited?: No Condition: Stable Referrals: RENNY RAYA MD [Primary Care Provider] - 3-5 Days Time of Disposition: 22:22
[2018-12-23 21:53] LABS: Hematocrit 46.6 % (35.5-45.6); Hemoglobin 15.9 gm/dl (11.8-15.2); Red Blood Count 5.32 M/mm3 (3.65-5.03)
[2018-12-23 21:54] LABS: Mean Corpuscular Volume 88 fl (84-94)
[2018-12-23 21:57] LABS: Mean Corpuscular HGB Conc 34 % (32-34); Platelet Count 224 K/mm3 (140-440); Red Cell Distribution Width 14.3 % (13.2-15.2)
[2018-12-23 21:58] LABS: Basophils % (Auto) 0.6 % (0.0-1.8); Eosinophils # (Auto) 0.2 K/mm3 (0.0-0.4); Eosinophils % (Auto) 3.6 % (0.0-4.3); Lymphocytes # (Auto) 1.4 K/mm3 (1.2-5.4); Lymphocytes % (Auto) 22.9 % (13.4-35.0); Monocytes # (Auto) 0.6 K/mm3 (0.0-0.8); Monocytes % (Auto) 9.9 % (0.0-7.3)
[2018-12-23 23:04] LABS: Calcium 10.3 mg/dL (8.4-10.2)
[2018-12-23 23:05] LABS: Albumin 4.3 g/dL (3.9-5)
== END 2018-12-23 22:20 | disposition left against medical advice (07) ==
LOC: ED 18:46
DX: R20.0 Anesthesia of skin (principal); I11.0 Hypertensive heart disease with heart failure; I50.9 Heart failure, unspecified; J44.9 Chronic obstructive pulmonary disease, unspecified; F17.200 Nicotine dependence, unspecified, uncomplicated
CPT/HCPCS: 36415; 80053; 83735; 84100; 84484; 85025; 93005; 93010

== ENCOUNTER 2019-04-12 11:14 | Emergency (ER) | payer MEDICAID ==
[2019-04-12] MEDS ORDERED: XYLOCAINE 2% INFILTRATI ONE (11:40)
[2019-04-12] MEDS ORDERED: XYLOCAINE TOPICAL 4% TP ONE (11:40)
[2019-04-12] MEDS ORDERED: NACL 0.9% 500 ML 500 ML IV ONE (11:40)
[2019-04-12] MEDS ORDERED: NACL 0.9% IR ONE (11:41)
--- NOTE | 2019-04-12 11:43 | Emergency Department Report ---
ED General Adult HPI - General Chief complaint: Syncope Stated complaint: BRADYCARDIA/HYPOTENSION Time Seen by Provider: 04/12/19 11:29 Source: patient, EMS (ems notes not available at time of chart dictation), RN notes reviewed Mode of arrival: Stretcher Limitations: Physical Limitation - History of Present Illness Initial comments: This is a 53-year-old gentleman. The patient is not known to this provider previously. The patient has a past medical history of hypertension, high cholesterol, COPD, and chronic resting bradycardia. The patient typically follows with Dr. Valerio of [facility]. Patient had a cardiac catheterization at this hospital December 2018, which demonstrated no significant arterial disease, and an ejection fraction of 50- 55%. The patient presents to the ER with lacerations to his right fifth and fourth toes, and an episode o unprovoked syncope. He reports that he was walking to the bathroom this morning, when he became lightheaded, without pain, and loss consciousness. Prior to the event, he denied headache, neck pain, chest pain, and exertional shortness of breath. He denies DVT, pulmonary embolus risk factors. He endorses compliance with his medications. He indicates he did not eat breakfast in the morning. He indicates he ate dinner last night. He indicates he is up-to-date with tetanus vaccinations. This is a single isolated incidents of syncope this morning, now resolved, it was painless, does not radiate anywhere, and did not have exacerbating or relieving factors. The patient denies chest pain, abdominal pain, extremity weakness, numbness. -: Sudden Location: right, lower extremity Radiation: non-radiation Quality: aching Consistency: constant Improves with: rest (pain in the right foot/toes increases with palpation and range of motion. It decreases with rest.) Worsens with: movement - Related Data Previous Rx's Medication Instructions Recorded Last Taken Type Lisinopril [Zestril TAB] 40 mg PO QDAY #30 tablet 07/25/17 12/17/18 Rx 40mg Pravastatin [Pravachol] 20 mg PO QDAY #30 tablet 07/25/17 12/17/18 Rx 20mg amLODIPine [Norvasc] 10 mg PO DAILY #30 tab 07/25/17 12/17/18 Rx 10mg hydroCHLOROthiazide [HCTZ] 25 mg PO QDAY #30 tablet 07/25/17 12/17/18 Rx 25mg Acetaminophen [Non-Aspirin Extra 500 mg PO Q6HR PRN #30 tablet 04/12/19 Unknown Rx Strength] Ibuprofen [Motrin] 600 mg PO Q8H PRN #30 tablet 04/12/19 Unknown Rx cephALEXin [Keflex] 500 mg PO Q12HR #10 cap 04/12/19 Unknown Rx Allergies Allergy/AdvReac Type Severity Reaction Status Date / Time No Known Allergies Allergy Verified 04/12/19 11:23 ED Review of Systems ROS: Stated complaint: BRADYCARDIA/HYPOTENSION Other details as noted in HPI Constitutional: denies: fever Eyes: denies: eye discharge Respiratory: denies: cough Cardiovascular: syncope Gastrointestinal: denies: abdominal pain Genitourinary: denies: dysuria Musculoskeletal: arthralgia, myalgia Skin: lesions Neurological: denies: headache Hematological/Lymphatic: denies: easy bleeding ED Past Medical Hx - Past Medical History Hx Hypertension: Yes Hx Heart Attack/AMI: No Hx Congestive Heart Failure: Yes Hx Diabetes: No Hx Arthritis: No Hx Psychiatric Treatment: Yes Hx COPD: Yes Hx HIV: No - Social History Smoking Status: Current Every Day Smoker Substance Use Type: Alcohol - Medications Home Medications: Home Medications Medication Instructions Recorded Confirmed Last Taken Type Lisinopril [Zestril TAB] 40 mg PO QDAY #30 tablet 07/25/17 04/12/19 12/17/18 Rx 40mg Pravastatin [Pravachol] 20 mg PO QDAY #30 tablet 07/25/17 04/12/19 12/17/18 Rx 20mg amLODIPine [Norvasc] 10 mg PO DAILY #30 tab 07/25/17 04/12/19 12/17/18 Rx 10mg hydroCHLOROthiazide [HCTZ] 25 mg PO QDAY #30 tablet 07/25/17 04/12/19 12/17/18 Rx 25mg Acetaminophen [Non-Aspirin Extra 500 mg PO Q6HR PRN #30 tablet 04/12/19 Unknown Rx Strength] Ibuprofen [Motrin] 600 mg PO Q8H PRN #30 tablet 04/12/19 Unknown Rx cephALEXin [Keflex] 500 mg PO Q12HR #10 cap 04/12/19 Unknown Rx ED Physical Exam - General Limitations: No Limitations General appearance: alert, in no apparent distress - Head Head exam: Present: atraumatic, normocephalic - Eye Eye exam: Present: normal appearance, EOMI, other (visual acuity intact to finger counting, color perception, reading at a close distance). Absent: nystagmus - ENT ENT exam: Present: normal exam, normal orophraynx, mucous membranes moist, normal external ear exam - Neck Neck exam: Present: normal inspection, full ROM. Absent: tenderness, meningismus - Respiratory Respiratory exam: Present: normal lung sounds bilaterally. Absent: respiratory distress, wheezes, rales, rhonchi, stridor - Cardiovascular Cardiovascular Exam: Present: normal rhythm, bradycardia, normal heart sounds. Absent: systolic murmur, diastolic murmur, rubs, gallop - GI/Abdominal GI/Abdominal exam: Present: soft. Absent: distended, tenderness, guarding, rebound, rigid, pulsatile mass - Rectal Rectal exam: Present: deferred - Extremities Exam Extremities exam: Present: normal inspection, full ROM, other (on the plantar aspect of the right foot, there are circular near circumferential lacerations noted on the fifth toe and fourth toe. No foreign bodies noted. Fifth toe laceration approximately 1.5 cm, fourth toe laceration 1.5 cm.). Absent: pedal edema, joint swelling, calf tenderness - Back Exam Back exam: Present: normal inspection, full ROM. Absent: tenderness, CVA tenderness (R), CVA tenderness (L), paraspinal tenderness, vertebral tenderness - Neurological Exam Neurological exam: Present: alert, oriented X3, other (Extraocular movements intact. Tongue midline. No facial droop. Facial sensation intact to light to uch in the V1, V2, V3 distribution bilaterally. 5 and 5 strength in 4 extremities.. Sensation is intact to light touch in 4 extremities.). Absent: motor sensory deficit - Psychiatric Psychiatric exam: Present: normal affect, normal mood, anxious - Skin Skin exam: Present: warm ED Course Vital Signs 04/12/19 04/12/19 04/12/19 11:23 11:37 13:34 Temperature 97.5 F L Pulse Rate 54 L Respiratory 18 18 18 Rate Blood Pressure 115/63 O2 Sat by Pulse 98 98 Oximetry - Reevaluation(s) Reevaluation #1: 04/12/19 15:36 Differential diagnosis, including not limited to: Orthostasis, vagal event, dehydration, medication side effect, structural cardiac disease, acute toe lacerations Assessment and plan: 53-year-old gentleman with unprovoked episode of syncope, reported hypotension, has no chronic bradycardia, no pulmonary embolism or DVT risk factors, low risk by well's criteria, has chronic known bradycardia had definitive cardiac risk stratification a few months ago, likely presenting with vagal event. The patient is afebrile with reassuring vital signs, not tachycardic and not hypoxic. GCS of 15. NIH score of 0.Patient is clinically sober at this time. The cervical spine is cleared through nexus and lithuan[place] c spine rule Patient is observed in the emergency room for hours without clinical decompensation. He has a negative CT scan of the brain, troponins were negative 2, EKG is unchanged 2. Total lacerations are repaired by myself without significant difficulty. Patient also seen in consultation with cardiology, Dr. Tamanna Kuhn, who recommended the patient withhold his isosorbide, in cardiology team is recommending the patient not to drive or operate motor vehicles until they can reassess him. He has a follow-up planned with cardiology, Dr. Molina, at 8 10 in the morning, on the [place]. He'll be given Keflex prophylaxis, pain medication, - Laceration /Wound Repair Right Lateral Plantar Toe Wound Location: lower extremity Wound's Depth, Shape: into muscle, linear, irregular, contused tissue Wound Explored: clean Irrigated w/ Saline (ccs): 300 Betadine Prep?: Yes Anesthesia: 1% Lidocaine Volume Anesthetic (ccs): 3 Suture Size/Type: 5:0 Number of Sutures: 3 Layer Closure?: No Sterile Dressing Applied?: Yes Progress: Right fifth toe circumferential laceration, irrigated copiously with sterile saline and adequate pressure, 3 interrupted 5-0 monofilament nylon nonabsorbable sutures placed, with good cosmetic approximation. The patient tolerated adequately. Right Lower Lateral Plantar Toe Wound Location: lower extremity Wound Length (cm): 1 Wound's Depth, Shape: into muscle, irregular Wound Explored: clean Irrigated w/ Saline (ccs): 300 Betadine Prep?: Yes Anesthesia: 1% Lidocaine Volume Anesthetic (ccs): 3 Suture Size/Type: 5:0 Number of Sutures: 5 Layer Closure?: No Progress: Right 4th toe circumferential laceration, irrigated copiously with sterile saline and adequate pressure, 5 interrupted 5-0 monofilament nylon nonabsorbable sutures placed, with good cosmetic approximation. The patient tolerated adequately. ED Medical Decision Making - Lab Data Result diagrams: 04/12/19 12:12 04/12/19 12:12 Vital Signs 04/12/19 04/12/19 04/12/19 11:23 11:37 13:34 Temperature 97.5 F L Pulse Rate 54 L Respiratory 18 18 18 Rate Blood Pressure 115/63 O2 Sat by Pulse 98 98 Oximetry Lab Results 04/12/19 04/12/19 04/12/19 Range/Units 12:12 12:12 12:12 WBC 7.5 (4.5-11.0) K/mm3 RBC 5.02 (3.65-5.03) M/mm3 Hgb 15.7 H (11.8-15.2) gm/dl Hct 44.7 (35.5-45.6) % MCV 89 (84-94) fl MCH 31 (28-32) pg MCHC 35 H (32-34) % RDW 14.1 (13.2-15.2) % Plt Count 205 (140-440) K/mm3 PT 13.0 (12.2-14.9) Sec. INR 1.01 (0.87-1.13) Sodium (137-145) mmol/L Potassium (3.6-5.0) mmol/L Chloride (98-107) mmol/L Carbon Dioxide (22-30) mmol/L Anion Gap mmol/L BUN (9-20) mg/dL Creatinine (0.8-1.5) mg/dL Estimated GFR ml/min BUN/Creatinine Ratio % Glucose (75-100) mg/dL Calcium (8.4-10.2) mg/dL Magnesium (1.7-2.3) mg/dL Total Creatine Kinase (55-170) units/L Troponin T < 0.010 (0.00-0.029) ng/mL TSH (0.270-4.200) mlU/mL Urine Color (Yellow) Urine Turbidity (Clear) Urine pH (5.0-7.0) Ur Specific Eunice (1.003-1.030) Urine Protein (Negative) mg/dL Urine Glucose (UA) (Negative) mg/dL Urine Ketones (Negative) mg/dL Urine Blood (Negative) Urine Nitrite (Negative) Urine Bilirubin (Negative) Urine Urobilinogen (<2.0) mg/dL Ur Leukocyte Esterase (Negative) Urine WBC (Auto) (0.0-6.0) /HPF Urine RBC (Auto) (0.0-6.0) /HPF U Epithel Cells (Auto) (0-13.0) /HPF Salicylates (2.8-20.0) mg/dL Urine Opiates Screen Urine Methadone Screen Acetaminophen (10.0-30.0) ug/mL Ur Barbiturates Screen Ur Phencyclidine Scrn Ur Amphetamines Screen U Benzodiazepines Scrn Urine Cocaine Screen U Marijuana (THC) Screen Drugs of Abuse Note Plasma/Serum Alcohol (0-0.07) % 04/12/19 04/12/19 04/12/19 Range/Units 12:12 12:12 12:12 WBC (4.5-11.0) K/mm3 RBC (3.65-5.03) M/mm3 Hgb (11.8-15.2) gm/dl Hct (35.5-45.6) % MCV (84-94) fl MCH (28-32) pg MCHC (32-34) % RDW (13.2-15.2) % Plt Count (140-440) K/mm3 PT (12.2-14.9) Sec. INR (0.87-1.13) Sodium (137-145) mmol/L Potassium (3.6-5.0) mmol/L Chloride (98-107) mmol/L Carbon Dioxide (22-30) mmol/L Anion Gap mmol/L BUN (9-20) mg/dL Creatinine (0.8-1.5) mg/dL Estimated GFR ml/min BUN/Creatinine Ratio % Glucose (75-100) mg/dL Calcium (8.4-10.2) mg/dL Magnesium 2.10 (1.7-2.3) mg/dL Total Creatine Kinase 71 (55-170) units/L Troponin T (0.00-0.029) ng/mL TSH 1.030 (0.270-4.200) mlU/mL Urine Color (Yellow) Urine Turbidity (Clear) Urine pH (5.0-7.0) Ur Specific Eunice (1.003-1.030) Urine Protein (Negative) mg/dL Urine Glucose (UA) (Negative) mg/dL Urine Ketones (Negative) mg/dL Urine Blood (Negative) Urine Nitrite (Negative) Urine Bilirubin (Negative) Urine Urobilinogen (<2.0) mg/dL Ur Leukocyte Esterase (Negative) Urine WBC (Auto) (0.0-6.0) /HPF Urine RBC (Auto) (0.0-6.0) /HPF U Epithel Cells (Auto) (0-13.0) /HPF Salicylates < 0.3 L (2.8-20.0) mg/dL Urine Opiates Screen Urine Methadone Screen Acetaminophen (10.0-30.0) ug/mL Ur Barbiturates Screen Ur Phencyclidine Scrn Ur Amphetamines Screen U Benzodiazepines Scrn Urine Cocaine Screen U Marijuana (THC) Screen Drugs of Abuse Note Plasma/Serum Alcohol (0-0.07) % 04/12/19 04/12/19 04/12/19 Range/Units 12:12 12:12 12:12 WBC (4.5-11.0) K/mm3 RBC (3.65-5.03) M/mm3 Hgb (11.8-15.2) gm/dl Hct (35.5-45.6) % MCV (84-94) fl MCH (28-32) pg MCHC (32-34) % RDW (13.2-15.2) % Plt Count (140-440) K/mm3 PT (12.2-14.9) Sec. INR (0.87-1.13) Sodium 137 (137-145) mmol/L Potassium 3.6 (3.6-5.0) mmol/L Chloride 102.1 (98-107) mmol/L Carbon Dioxide 24 (22-30) mmol/L Anion Gap 15 mmol/L BUN 25 H (9-20) mg/dL Creatinine 1.5 (0.8-1.5) mg/dL Estimated GFR 59 ml/min BUN/Creatinine Ratio 17 % Glucose 103 H (75-100) mg/dL Calcium 9.6 (8.4-10.2) mg/dL Magnesium (1.7-2.3) mg/dL Total Creatine Kinase (55-170) units/L Troponin T (0.00-0.029) ng/mL TSH (0.270-4.200) mlU/mL Urine Color (Yellow) Urine Turbidity (Clear) Urine pH (5.0-7.0) Ur Specific Eunice (1.003-1.030) Urine Protein (Negative) mg/dL Urine Glucose (UA) (Negative) mg/dL Urine Ketones (Negative) mg/dL Urine Blood (Negative) Urine Nitrite (Negative) Urine Bilirubin (Negative) Urine Urobilinogen (<2.0) mg/dL Ur Leukocyte Esterase (Negative) Urine WBC (Auto) (0.0-6.0) /HPF Urine RBC (Auto) (0.0-6.0) /HPF U Epithel Cells (Auto) (0-13.0) /HPF Salicylates (2.8-20.0) mg/dL Urine Opiates Screen Urine Methadone Screen Acetaminophen < 5.0 L (10.0-30.0) ug/mL Ur Barbiturates Screen Ur Phencyclidine Scrn Ur Amphetamines Screen U Benzodiazepines Scrn Urine Cocaine Screen U Marijuana (THC) Screen Drugs of Abuse Note Plasma/Serum Alcohol < 0.01 (0-0.07) % 04/12/19 04/12/19 04/12/19 Range/Units 13:54 14:35 14:35 WBC (4.5-11.0) K/mm3 RBC (3.65-5.03) M/mm3 Hgb (11.8-15.2) gm/dl Hct (35.5-45.6) % MCV (84-94) fl MCH (28-32) pg MCHC (32-34) % RDW (13.2-15.2) % Plt Count (140-440) K/mm3 PT (12.2-14.9) Sec. INR (0.87-1.13) Sodium (137-145) mmol/L Potassium (3.6-5.0) mmol/L Chloride (98-107) mmol/L Carbon Dioxide (22-30) mmol/L Anion Gap mmol/L BUN (9-20) mg/dL Creatinine (0.8-1.5) mg/dL Estimated GFR ml/min BUN/Creatinine Ratio % Glucose (75-100) mg/dL Calcium (8.4-10.2) mg/dL Magnesium (1.7-2.3) mg/dL Total Creatine Kinase (55-170) units/L Troponin T < 0.010 (0.00-0.029) ng/mL TSH (0.270-4.200) mlU/mL Urine Color Straw (Yellow) Urine Turbidity Clear (Clear) Urine pH 5.0 (5.0-7.0) Ur Specific Eunice 1.008 (1.003-1.030) Urine Protein <15 mg/dl (Negative) mg/dL Urine Glucose (UA) Neg (Negative) mg/dL Urine Ketones Neg (Negative) mg/dL Urine Blood Neg (Negative) Urine Nitrite Neg (Negative) Urine Bilirubin Neg (Negative) Urine Urobilinogen < 2.0 (<2.0) mg/dL Ur Leukocyte Esterase Sm (Negative) Urine WBC (Auto) 4.0 (0.0-6.0) /HPF Urine RBC (Auto) 2.0 (0.0-6.0) /HPF U Epithel Cells (Auto) 1.0 (0-13.0) /HPF Salicylates (2.8-20.0) mg/dL Urine Opiates Screen Presumptive negative Urine Methadone Screen Presumptive negative Acetaminophen (10.0-30.0) ug/mL Ur Barbiturates Screen Presumptive negative Ur Phencyclidine Scrn Presumptive negative Ur Amphetamines Screen Presumptive negative U Benzodiazepines Scrn Presumptive negative Urine Cocaine Screen Presumptive positive U Marijuana (THC) Screen Presumptive positive Drugs of Abuse Note Disclamer Plasma/Serum Alcohol (0-0.07) % Vital Signs 04/12/19 04/12/19 04/12/19 11:23 11:37 13:34 Temperature 97.5 F L Pulse Rate 54 L Respiratory 18 18 18 Rate Blood Pressure 115/63 O2 Sat by Pulse 98 98 Oximetry Vital Signs - 24 hr 04/12/19 04/12/19 04/12/19 11:23 11:37 13:34 Temperature 97.5 F L Pulse Rate 54 L Respiratory 18 18 18 Rate Blood Pressure 115/63 O2 Sat by Pulse 98 98 Oximetry - EKG Data -: EKG Interpreted by Wi EKG shows normal: sinus rhythm Rate: bradycardia - EKG Data When compared to previous EKG there are: no significant change 04/12/19 15:44 EKG #1 shows a resting sinus bradycardia, 54 bpm, normal axis, left ventricular hypertrophy, acute, this EKG is unchanged from prior EKG, the EKG is not consistent with ST elevation myocardial infarction. EKG #2 is unchanged from prior. Both EKGs appear to be unchanged from prior EKG from December 2018. - Radiology Data Radiology results: pending, report reviewed, image reviewed Noncontrast CT scan of the brain is negative for acute disease. X-ray of the chest is negative for acute disease. X-ray of the right foot is negative for acute disease Critical care attestation.: If time is entered above; I have spent that time in minutes in the direct care of this critically ill patient, excluding procedure time. ED Disposition Clinical Impression: Toe laceration, History of syncope, Chronic sinus bradycardia Disposition: DC- TO HOME OR SELFCARE Is pt being admited?: No Does the pt Need Aspirin: No Condition: Stable Additional Instructions: Take the pain medications as needed/directed. Continue outpatient medications, the exception of isosorbide, should be discontinued and held. Please follow up with her continuous improvement intern on Monday, at 8 10 in the morning, at the [place] office. Weightbearing as tolerated, take the antibiotics as needed/directed, and follow up with a winder fixer within the next 3-5 days for the right toe lacerations. It is very important to closely follow up with a winder fixer within the next 5 days as recommended so partial tendon injuries to the foot can be excluded/ruled out. Recommend the patient not drive or operate motor vehicles until cleared to do so by his private continuous improvement intern. In addition, urine toxicology screen showed the presence of cocaine and marijuana. Recommend that patient avoid consumption and exposure of cocaine and marijuana, as these may precipitate and cause loss of consciousness, cause, given impairment, addiction, and may cause long-term disability, paralysis and loss of quality of life. Return to the emergency room right away with new, worsening or different symptoms, or symptoms not present on the initial emergency room evaluation. Sutures should be taken out in 12-14 days. Referrals: RENNY RAYA MD [Primary Care Provider] - 3-5 Days BRIONNA MOLINA MD [Staff Physician] - 3-5 Days PAUL TUBBS DPM [Staff Physician] - 3-5 Days
[2019-04-12 12:31] LABS: Hematocrit 44.7 % (35.5-45.6); Hemoglobin 15.7 gm/dl (11.8-15.2); Mean Corpuscular HGB Conc 35 % (32-34); Mean Corpuscular Volume 89 fl (84-94); Platelet Count 205 K/mm3 (140-440); Red Blood Count 5.02 M/mm3 (3.65-5.03); Red Cell Distribution Width 14.1 % (13.2-15.2)
--- NOTE | 2019-04-12 12:36 | Consultation ---
History of Present Illness Consult date: 04/12/19 Consult reason: bradycardia, syncope History of present illness: This is a 53-year old male who presents to the emergency department with hypoten windy, bradycardia and syncope. Patient reports he stood up to use the restroom and passed out. He denies dizziness, chest pain, shortness of breath and palpitations just prior to passing out. Head CT scan is pending. An ECG is benign, a sinus bradycardia. A cardiac consultation has been requested for further evaluation. Patient is known to [facility]. He has chronic hypertension managed with m ultiple medications, COPD and tobacco abuse. There is no history of coronary artery disease. In fact, just 3 months ago, he had a cardiac cath that reports minimal irregularities, no significant coronary disease. Well preserved left ventricular systolic function, ejection fraction 50-55%. Medications and Allergies Allergies Allergy/AdvReac Type Severity Reaction Status Date / Time No Known Allergies Allergy Verified 04/12/19 11:23 Home Medications Medication Instructions Recorded Confirmed Last Taken Type Lisinopril [Zestril TAB] 40 mg PO QDAY #30 tablet 07/25/17 04/12/19 12/17/18 Rx 40mg Pravastatin [Pravachol] 20 mg PO QDAY #30 tablet 07/25/17 04/12/19 12/17/18 Rx 20mg amLODIPine [Norvasc] 10 mg PO DAILY #30 tab 07/25/17 04/12/19 12/17/18 Rx 10mg hydroCHLOROthiazide [HCTZ] 25 mg PO QDAY #30 tablet 07/25/17 04/12/19 12/17/18 Rx 25mg Physical Examination Vital Signs Temp Pulse Resp BP Pulse Ox 97.5 F L 54 L 18 115/63 98 04/12/19 11:23 04/12/19 11:23 04/12/19 11:23 04/12/19 11:23 04/12/19 11:23 General appearance: no acute distress HEENT: Positive: PERRL Neck: Positive: trachea midline Cardiac: Positive: Bradycardia Lungs: Positive: Decreased Breath Sounds Neuro: Positive: Grossly Intact Extremities: Absent: edema Results 04/12/19 12:12 CBC 04/12/19 Range/Units 12:12 WBC 7.5 (4.5-11.0) K/mm3 RBC 5.02 (3.65-5.03) M/mm3 Hgb 15.7 H (11.8-15.2) gm/dl Hct 44.7 (35.5-45.6) % Plt Count 205 (140-440) K/mm3 Assessment and Plan Syncope likely vasovagal Hypertension Hx of COPD Tobacco abuse [facility] [place] 12/2018: minimal irregularities, no significant coronary disease. Well preserved left ventricular systolic function, ejection fraction 50-55%. Head CT scan pending. Otherwise, conservative cardiac management.
[2019-04-12 12:42] LABS: INR 1.01 (0.87-1.13)
--- NOTE | 2019-04-12 12:58 | XRay Report ---
RIGHT FOOT, 3 VIEWS INDICATION: RIGHT FOOT PAIN. COMPARISON: None. IMPRESSION: A soft tissue bandage overlies the fourth toe. No acute osseous findings, joint patholog y or radiopaque foreign body is identified moderate plantar spur is noted. Signer Name: Alessandro Alonzo Jr, MD Signed: 04/12/2019 12:53 PM Workstation Name: [id number]
--- NOTE | 2019-04-12 12:58 | XRay Report ---
CHEST 1 VIEW INDICATION / CLINICAL INFORMATION: SYNCOPE. COMPARISON: 07/24/2017 FINDINGS: SUPPORT DEVICES: None. HEART / MEDIASTINUM: No significant abnormality. LUNGS / PLEURA: No significant pulmonary or pleural abnormality. No pneumothorax. ADDITIONAL FINDINGS: No significant additional findings. IMPRESSION: 1. No acute findings. Signer Name: Gabino Estrada MD Signed: 04/12/2019 12:53 PM Workstation Name: [id number]
[2019-04-12 13:28] LABS: Calcium 9.6 mg/dL (8.4-10.2)
[2019-04-12] MEDS ORDERED: MORPHINE ONE (13:33)
[2019-04-12] MEDS ORDERED: MORPHINE IV ONE (13:33)
[2019-04-12 14:49] LABS: Bilirubin,Urine NEG (Negative); Blood,Urine NEG (Negative); Color,Urine Straw (Yellow); Protein,Urine <15 mg/dL mg/dL (Negative); Urobilinogen,Urine < 2.0 mg/dL (<2.0)
[2019-04-12 15:02] LABS: Amphetamine Screen,Urine PRESUMPTIVE NEGATIVE; Benzodiazepines Screen,Urine PRESUMPTIVE NEGATIVE; Methadone Screen,Urine PRESUMPTIVE NEGATIVE; Opiate Screen,Urine PRESUMPTIVE NEGATIVE
[2019-04-12 15:14] LABS: Cannabinoid Screen,Urine PRESUMPTIVE POSITIVE; Cocaine Screen,Urine PRESUMPTIVE POSITIVE
--- NOTE | 2019-04-12 15:16 | Cat Scan Report ---
CT HEAD WITHOUT CONTRAST INDICATION : Dizziness and syncope for one day. TECHNIQUE: Axial imaging performed from the skull apex through the skull base without the use of con trast. All CT scans at this location are performed using CT dose reduction for ALARA by means of aut omated exposure control. COMPARISON: None FINDINGS: Parenchyma: No acute intracranial hemorrhage or parenchymal abnormality. Ventricles: Ventricles are normal in size and appear symmetric. Bones: No acute osseous abnormality. Sinuses: Sinuses and mastoid air cells are clear. Soft tissues: Soft tissues including the orbits appear normal. IMPRESSION: No acute abnormality. Signer Name: Alessandro Alonzo Jr, MD Signed: 04/12/2019 3:11 PM Workstation Name: [id number]
[2019-04-12] MEDS ORDERED: KEFLEX PO ONE (15:30)
[2019-04-12 15:49] VITALS: BP 102/58
[2019-04-12] MEDS ORDERED: PERCOCET 5/325 PO ONE (15:54)
== END 2019-04-12 16:07 | disposition home or self-care (01) ==
LOC: ED 11:14
DX: S91.114A Laceration without foreign body of right lesser toe(s) without damage to nail, initial encounter (principal); R55 Syncope and collapse; R00.1 Bradycardia, unspecified; I11.0 Hypertensive heart disease with heart failure; I50.9 Heart failure, unspecified; J44.9 Chronic obstructive pulmonary disease, unspecified; F17.200 Nicotine dependence, unspecified, uncomplicated; Z79.899 Other long term (current) drug therapy; X58.XXXA Exposure to other specified factors, initial encounter; Y93.89 Activity, other specified; Y92.89 Other specified places as the place of occurrence of the external cause; Y99.8 Other external cause status
CPT/HCPCS: 12001; 36415; 70450; 71045; 73630; 80048; 80307; 81001; 82550; 83735; 84443; 84484; 85027; 85610; 87086; 93005; 93010; 96374; 99285; J2270; J7040; 80320; G0480